=== PATIENT | male | born 1965 | race Caucasian/White ===

== ENCOUNTER 2019-07-26 06:51 | Day surgery (SDC) | payer MEDICARE, OTHER ==
[2019-07-22 17:12] VITALS: BMI 31.9
[~2019-07-26 06:51] MED LIST: LACTATED RINGERS 1,000 ML IV SCH
[2019-07-26 07:13] VITALS: TEMP 98.2
[2019-07-26 07:24] LABS: Glucose,Whole Blood 139 mg/dL (75-99)
[2019-07-26] MEDS ORDERED: LIDOCAINE 1% INJ 10MG/ML (20 ML MDV) ONE (07:43)
[2019-07-26] MEDS ORDERED: MIDAZOLAM 2 MG/2 ML VIAL ONE (07:43)
[2019-07-26] MEDS ORDERED: fentaNYL (PF) 50 MCG/ML 2 ML AMP ONE (07:43)
[2019-07-26] MEDS ORDERED: PROPOFOL 10 MG/ML 20 ML VIAL IV ONE (07:43)
[2019-07-26] MEDS ORDERED: IV FLUID CONTINUATION 900 ML IV ONE (07:44)
--- NOTE | 2019-07-26 07:48 | P.GSHP ---
History of Present Illness H&P Date: 07/26/19 Chief Complaint: GERD, screening colonoscopy This a 54-year-old male who presents today for EGD and colonoscopy. Patient complaints of GERD. He's never had a screening colonoscopy performed. Past Medical History Past Medical History: Diabetes Mellitus, Hyperlipidemia, Thyroid Disorder Additional Past Medical History / Comment(s): nausea & stomach pain recently, feeling of something stuck in throat recently, recent bronchitis, back pain, sciatic pain History of Any Multi-Drug Resistant Organisms: None Reported Past Surgical History: Orthopedic Surgery Additional Past Surgical History / Comment(s): EGD, rotator cuff repair, arthroscopy left knee, left ankle tarsal tunnel Past Anesthesia/Blood Transfusion Reactions: No Reported Reaction Smoking Status: Current every day smoker Medications and Allergies Home Medications Medication Instructions Recorded Confirmed Type Cholecalciferol [Vitamin D3 (25 1,000 unit PO DAILY 07/22/19 07/22/19 History Mcg = 1000 Iu)] Dulaglutide [Trulicity] 1.5 mg SQ MO 07/22/19 07/22/19 History Escitalopram [Lexapro] 20 mg PO DAILY 07/22/19 07/22/19 History Insulin Glargine,Hum.rec.anlog 20 units SQ QAM 07/22/19 07/22/19 History [Toujeo Solostar] Levothyroxine Sodium [Synthroid] 100 mcg PO DAILY 07/22/19 07/22/19 History Simvastatin [Zocor] 20 mg PO HS 07/22/19 07/22/19 History Thiamine [Vitamin B-1] 100 mg PO DAILY 07/22/19 07/22/19 History Ubidecarenone [Co Q-10] 100 mg PO DAILY 07/22/19 07/22/19 History Allergies Allergy/AdvReac Type Severity Reaction Status Date / Time No Known Allergies Allergy Verified 07/22/19 16:25 Surgical - Exam Vital Signs Temp Pulse Resp BP Pulse Ox 98.2 F 94 18 126/82 93 L 07/26/19 07:10 07/26/19 07:10 07/26/19 07:10 07/26/19 07:10 07/26/19 07:10 - General well developed, well nourished, no distress - Eyes PERRL - ENT normal pinna - Neck no masses - Respiratory normal expansion - Cardiovascular Rhythm: regular - Abdomen Abdomen: soft, non tender Results - Labs Abnormal Lab Results - Last 24 Hours (Table) 07/26/19 Range/Units 07:19 POC Glucose (mg/dL) 139 H (75-99) mg/dL Assessment and Plan Assessment: GERD. We'll perform EGD. Once perform initial screening colonoscopy.
--- NOTE | 2019-07-26 08:11 | P.OP ---
Date of Procedure: 07/26/19 Preoperative Diagnosis: GERD Screening colonoscopy Postoperative Diagnosis: Antral gastritis Small hiatal hernia Mild esophagitis Diverticulosis External hemorrhoids Procedure(s) Performed: EGD Colonoscopy Anesthesia: MAC Surgeon: Kulwinder Bucio Pathology: other (Antrum, esophagus) Condition: stable Disposition: PACU Description of Procedure: The patient's placed on the endoscopy table in the lateral position. He received IV sedation. The gastroscope placed oropharynx and passed in the esophagus and into the stomach. Scope was then placed through the pylorus. The first and second portion duodenum appeared normal. Scope was then brought back the antrum this. Mildly inflamed. A biopsies performed. The scope was unretroflexed and remainder of the stomach appeared normal. The patient had a small hiatal hernia. The GE junction was at 40 cm. The distal esophagus was mildly inflamed. A biopsies performed. The scope was then withdrawn and the proximal esophagus appeared normal. Scope withdrawn for patient. Next digital rectal exam was performed which revealed mild external hemorrhoids. The prostate was symmetric without nodules. The flexible colonoscope was then placed patient anus passed throughout the entire colon. The ileocecal valve lesions. The cecum, ascending transverse colon appeared normal. In the descending colon were scattered diverticula. In the sigmoid colon there was more extensive diverticulosis. There is no evidence of any active diverticulitis. Scope was then brought back the rectum and this appeared normal. Scope withdrawn for patient.
[2019-07-26 08:14] VITALS: RESP 16
[2019-07-26 08:22] LABS: Glucose,Whole Blood 134 mg/dL (75-99)
[2019-07-26 08:32] VITALS: BP 124/92; PULSE 85
== END 2019-07-26 09:08 | disposition home or self-care (01) ==
LOC: ORWHC2ENDO 06:51
PROVIDERS: ATTEND Surgery
DX: Z12.11 Encounter for screening for malignant neoplasm of colon (principal); K29.50 Unspecified chronic gastritis without bleeding; K21.0 Gastro-esophageal reflux disease with esophagitis; K44.9 Diaphragmatic hernia without obstruction or gangrene; K64.4 Residual hemorrhoidal skin tags; K57.30 Diverticulosis of large intestine without perforation or abscess without bleeding; E11.9 Type 2 diabetes mellitus without complications; E78.5 Hyperlipidemia, unspecified; E07.9 Disorder of thyroid, unspecified; M54.30 Sciatica, unspecified side; F32.9 Major depressive disorder, single episode, unspecified; F17.200 Nicotine dependence, unspecified, uncomplicated; Z79.890 Hormone replacement therapy; Z79.4 Long term (current) use of insulin; Z79.899 Other long term (current) drug therapy
CPT/HCPCS: 88305; 43239; J2250; J2001; J3010; J2704; G0121

== ENCOUNTER → 2019-08-17 | Outpatient (CLI) | payer MEDICARE, OTHER ==
--- NOTE | 2019-08-17 09:17 | US ---
EXAMINATION TYPE: US gallbladder DATE OF EXAM: 08/17/2019 COMPARISON: NONE CLINICAL HISTORY: K82.8 Biliary dyskinesia, K80.00 Cholelithiasis w/. EXAM MEASUREMENTS: Liver Length: 17.4 cm, spanning may be underestimated Gallbladder Wall: .3 cm CBD: .4 cm Right Kidney: 11.1 x 4.3 x 5.0 cm Pancreas: Obscured by bowel gas Liver: Increased attenuation Gallbladder: No stones seen Evidence for sonographic Lyon's sign: No CBD: wnl Right Kidney: wnl There is no ascites. IMPRESSION: Exam is limited. Correlate for possible hepatic steatosis, hepatocellular disease. Liver may be enlarged.
--- NOTE | 2019-08-17 11:17 | NM ---
EXAMINATION TYPE: NM hepatobiliary w CCK DATE OF EXAM: 08/17/2019 COMPARISON: Ultrasound same date HISTORY: Biliary dyskinesia TECHNIQUE: After the intravenous administration of 4.68 mCi Tc 99m Mebrofenin hepatobiliary scintigra phy is performed. Immediate images post injection. FINDINGS: There is satisfactory initial accumulation of tracer by the liver. The gallbladder is visualized wit hin 4 minutes. The small bowel activity is noted within 8 minutes. At one hour CCK was administered , patient was injected with 1.8 mcg of Kinevac, and gallbladder ejection fraction is calculated at 78 %, in the normal range. Therefore there is no scintigraphic evidence of cystic or common bile duct obstruction to suggest acute cholecystitis or gallbladder dyskinesia. IMPRESSION: Exam is within normal limits.
== END ==
LOC: RADUSMAIN 07:58
PROVIDERS: ATTEND Surgery
DX: K82.8 Other specified diseases of gallbladder (principal); K80.00 Calculus of gallbladder with acute cholecystitis without obstruction
CPT/HCPCS: 76705; 78227; A9537; J2805

== ENCOUNTER 2019-09-07 09:58 | Day surgery (SDC) | payer MEDICARE, OTHER ==
[2019-09-06 09:37] VITALS: BMI 31.9
[~2019-09-07 09:58] MED LIST changes: +DEXAMETHASONE SOD PHOSPHATE 10 MG/ML 1 ML VIAL IV ONE; +HEPARIN SODIUM,PORCINE 5,000 UNIT/ML 1 ML VIAL SQ ONE; +HYDROmorphone 0.5 MG/0.5 ML SYRINGE IVP PRN; +LIDOCAINE 1% 20 ML VIAL (10MG/ML) FOR IV START INTRADERMA PRN; +MIDAZOLAM 2 MG/2 ML VIAL IV PRN; +ONDANSETRON 4 MG/2 ML VIAL IVP ONE; +SCOPOLAMINE 1.5MG/72HR PATCH TRANSDERM ONE
[2019-09-07 10:25] VITALS: RESP 16
[2019-09-07 10:33] LABS: Glucose,Whole Blood 147 mg/dL (75-99)
[2019-09-07] MEDS ORDERED: fentaNYL (PF) 50 MCG/ML 2 ML AMP IV ONE (11:07)
[2019-09-07] MEDS ORDERED: MIDAZOLAM 2 MG/2 ML VIAL IVP ONE (11:08)
--- NOTE | 2019-09-07 11:18 | P.ANPRN ---
Procedure Note - Anesthesia - Nerve Block Performed Bilateral Transversus Abdominis Single Time Out Performed: Yes Date of Procedure: 09/07/19 Procedure Start Time: 11:07 Procedure Stop Time: 11:12 Location of Patient: PreOp Indication: Acute Post-Operative Pain, Analgesia, Requested by Surgeon Sedation Type: Sedate with meaningful contact maintained Preparation: Sterile Prep Position: Supine Catheter: None Needle Types: Pajunk Needle Gauge: 21 Ultrasound used to visualize needle placement: Yes Ultrasound used to observe medication spread: Yes Injectate: 0.5% Ropivacaine (see comment for volume) (15cc b/l) Blood Aspirated: No Pain Paresthesia on Injection Noted: No Resistance on Injection: Normal Image Stored and Saved: Yes Events: Uneventful and Well Tolerated
--- NOTE | 2019-09-07 11:32 | P.GSHP ---
History of Present Illness H&P Date: 09/07/19 Chief Complaint: Right upper quadrant pain This a 54-year-old male who's had complaints of right quadrant pain. Patient describes pain and indigestion after eating greasy or fried foods. His HIDA scan shows a mildly elevated ejection fraction. Patient presents today for l aparoscopic ostectomy for chronic cholecystitis. Past Medical History Past Medical History: Diabetes Mellitus, GERD/Reflux, Hyperlipidemia, Thyroid Disorder Additional Past Medical History / Comment(s): nausea & stomach pain , feeling of something stuck in throat , bronchitis 1 Month ago, hiatal hernia, back & neck pain, sciatic pain., Tinnitus History of Any Multi-Drug Resistant Organisms: None Reported Past Surgical History: Orthopedic Surgery Additional Past Surgical History / Comment(s): EGD, COLONOSCOPY., rotator cuff repair, arthroscopy left knee, left ankle tarsal tunnel Past Anesthesia/Blood Transfusion Reactions: No Reported Reaction Past Psychological History: Anxiety, Depression Smoking Status: Current every day smoker Past Alcohol Use History: Rare Additional Past Alcohol Use History / Comment(s): 1/2ppd since February, had quit over 30 yrs. ago but started up again Past Drug Use History: None Reported - Past Family History Mother Family Medical History: No Reported History Medications and Allergies Home Medications Medication Instructions Recorded Confirmed Type Cholecalciferol [Vitamin D3 (25 1,000 unit PO DAILY 07/22/19 09/07/19 History Mcg = 1000 Iu)] Dulaglutide [Trulicity] 1.5 mg SQ MO 07/22/19 09/07/19 History Escitalopram [Lexapro] 20 mg PO DAILY 07/22/19 09/07/19 History Insulin Glargine,Hum.rec.anlog 20 units SQ QAM 07/22/19 09/07/19 History [Toujeo Solostar] Levothyroxine Sodium [Synthroid] 100 mcg PO DAILY 07/22/19 09/07/19 History Simvastatin [Zocor] 20 mg PO HS 07/22/19 09/07/19 History Thiamine [Vitamin B-1] 100 mg PO DAILY 07/22/19 09/07/19 History Ubidecarenone [Co Q-10] 100 mg PO DAILY 07/22/19 09/07/19 History Nexium (Unknown Dose) 1 tab PO DAILY PRN 09/06/19 09/07/19 History Allergies Allergy/AdvReac Type Severity Reaction Status Date / Time No Known Allergies Allergy Verified 09/06/19 09:29 Surgical - Exam Vital Signs Temp Pulse Resp BP Pulse Ox 96.7 F L 93 16 119/79 95 09/07/19 10:24 09/07/19 10:24 09/07/19 10:24 09/07/19 10:24 09/07/19 10:24 - General well developed, well nourished, no distress - Eyes PERRL - ENT normal pinna - Neck no masses - Respiratory normal expansion - Cardiovascular Rhythm: regular - Abdomen Abdomen: soft, non tender Results - Labs Abnormal Lab Results - Last 24 Hours (Table) 09/07/19 Range/Units 10:30 POC Glucose (mg/dL) 147 H (75-99) mg/dL Assessment and Plan Assessment: Chronic cholecystitis. We'll perform laparoscopic cholecystectomy.
[2019-09-07] MEDS ORDERED: LIDOCAINE 1% INJ 10MG/ML (20 ML MDV) ONE (11:52)
[2019-09-07] MEDS ORDERED: ROPIVACAINE 5 MG/ML 30 ML VIAL ONE (11:52)
[2019-09-07] MEDS ORDERED: fentaNYL (PF) 50 MCG/ML 2 ML AMP ONE (11:52)
[2019-09-07] MEDS ORDERED: ROCURONIUM BROMIDE 10 MG/ML 10 ML VIAL IV ONE (11:52)
[2019-09-07] MEDS ORDERED: .MORPHINE SULFATE (INJ) 10 MG/ML SYRINGE ONE (11:52)
[2019-09-07] MEDS ORDERED: NEOSTIGMINE 1 MG/ML 10 ML VIAL ONE (11:52)
[2019-09-07] MEDS ORDERED: PROPOFOL 10 MG/ML 20 ML VIAL IV ONE (11:52)
[2019-09-07] MEDS ORDERED: GLYCOPYRROLATE 0.2 MG/ML 2 ML VIAL ONE (11:52)
[2019-09-07] MEDS ORDERED: MIDAZOLAM 2 MG/2 ML VIAL ONE (11:52)
[2019-09-07] MEDS ORDERED: SUCCINYLCHOLINE CHLORIDE 100 MG/5 ML SYR IV ONE (11:52)
[2019-09-07] MEDS ORDERED: BUPIVACAIN-EPI 0.25%-1:200,000 30 ML VIAL SQ ONE ×2 (11:56→12:15)
[2019-09-07] MEDS ORDERED: LACTATED RINGERS 1,000 ML IV ONE (12:29)
--- NOTE | 2019-09-07 12:35 | P.OP ---
Date of Procedure: 09/07/19 Preoperative Diagnosis: Cholecystitis Postoperative Diagnosis: Cholecystitis Procedure(s) Performed: Laparoscopic cholecystectomy Anesthesia: QUINN Surgeon: Kulwinder Bucio Estimated Blood Loss (ml): 10 Pathology: other (Gallbladder) Condition: stable Disposition: PACU Description of Procedure: The patient was placed on the operating table. The patient received a general endotracheal tube anesthesia. The patients abdomen was prepped and draped in the usual sterile fashion. Through an infraumbilical stab incision, the fascia of the anterior abdominal wall was grasped with a pair of Kochers and then the Veress needle was placed in the peritoneal cavity. Position of the Veress needle was confirmed with positive drop test. The abdomen was then insufflated. After adequate insufflation, the 10 mm trocar was placed in the peritoneal cavity. Following this the laparoscope was placed in the peritoneal cavity. The patient was placed in the head-up, right side up position and then a 5 mm trocar was placed in the right lateral and right subcostal position under direct visualization. A 8 mm trocar was placed in the epigastric position. The gallbladder was grasped in the fundus and infundibulum. Traction on the gallbladder was placed in the lateral and the cephalad positions. The triangle of Calot was visualized.. The cystic duct was bluntly dissected until the union of the cystic duct and common bile duct was seen. A critical view of safety was achieved. The cystic duct was then divided and sealed with the Harmonic scissors. A PDS Endoloop was then placed throughout the cystic duct stump. The cystic artery divided and sealed with the Harmonic scissors. The gallbladder was then removed from the liver bed using Harmonic scissors. The gallbladder was then extracted through the epigastric port site. Operative field was checked for any bleeding spots and Harmonic scissors was used to coagulate the liver bed. The abdomen was irrigated. The trocars were removed. The skin was closed using interrupted 3-0 Vicryl suture. Dermabond dressing were applied. The patient tolerated the procedure well.
[2019-09-07] MEDS ORDERED: KETOROLAC 30 MG/ML 1 ML VIAL IVP ONE (12:52)
[2019-09-07 12:57] VITALS: TEMP 97.7
[2019-09-07] MEDS ORDERED: HYDROcodone/APAP 5-325MG 1 EACH TAB PO ONE (13:45)
[2019-09-07 14:27] VITALS: BP 135/77; PULSE 90
== END 2019-09-07 14:26 | disposition home or self-care (01) ==
LOC: OR 09:58
PROVIDERS: ATTEND Surgery
DX: K81.1 Chronic cholecystitis (principal); E11.9 Type 2 diabetes mellitus without complications; K21.9 Gastro-esophageal reflux disease without esophagitis; E78.5 Hyperlipidemia, unspecified; E07.9 Disorder of thyroid, unspecified; F32.9 Major depressive disorder, single episode, unspecified; F41.9 Anxiety disorder, unspecified; K44.9 Diaphragmatic hernia without obstruction or gangrene; H93.19 Tinnitus, unspecified ear; M54.30 Sciatica, unspecified side; Z98.890 Other specified postprocedural states; Z87.891 Personal history of nicotine dependence; Z79.4 Long term (current) use of insulin; Z79.890 Hormone replacement therapy; Z79.899 Other long term (current) drug therapy
CPT/HCPCS: 64488; 88304; 47562; J2250; J1644; J2710; J2270; J0690; J2405; J2001; J3010; J1885; J2795; J0330; J2704; J1170

== ENCOUNTER → 2019-11-10 | Outpatient (CLI) | payer MEDICARE, OTHER ==
--- NOTE | 2019-11-10 08:46 | US ---
EXAMINATION TYPE: US thyroid st tissue head/neck DATE OF EXAM: 11/10/2019 COMPARISON: NONE CLINICAL HISTORY: E04.01 Left thyroid nodule. On thyroid meds. Difficult swallowing. No previous ul trasound. GLAND SIZE: Right Lobe: 4.6 x 1.1 x 1.6 cm Overall Parenchyma: heterogenous Left Lobe: 3.8 x 1.1 x 1.3 cm Overall Parenchyma: heterogeneous Isthmus Thickness: 0.3 cm NODULES RIGHT: # of nodules measured on right: 0 LEFT: # of nodules measured on left: 0 ISTHMUS: # of nodules measured in the isthmus: 0 Bilateral neck scanned, no evidence of lymphadenopathy. IMPRESSION: 1. Normal thyroid scan
== END | disposition home or self-care (01) ==
LOC: RADUSWWP 06:55
PROVIDERS: ATTEND Surgery
DX: E04.1 Nontoxic single thyroid nodule (principal)
CPT/HCPCS: 76536